=== PATIENT | female | born 1955 | race Native Hawaiian/Other Pacific Islander ===

== ENCOUNTER 2021-01-10 13:55 | Outpatient (CLI) | payer OTHER ==
[~2021-01-10 13:55] MED LIST: FLUO10CA2 PO; NEXIUM40 M1 PO; XANAX2 MG PO
== END 2021-01-10 20:17 | disposition home or self-care (01) ==
LOC: MRI 13:55
PROVIDERS: ATTEND Nurse Practitioner Family
DX: M51.36 Other intervertebral disc degeneration, lumbar region (principal)